=== PATIENT | male | born 1995 | race Caucasian/White ===

== ENCOUNTER 2017-01-27 13:29 | Emergency (ER) | payer BC ==
[~2017-01-27] VITALS: Ht 172.7 cm; Wt 73.7 kg
[2017-01-27 13:33] VITALS: TEMP 36.6; Ht 172.7 cm; Wt 73.7 kg
[2017-01-27] MEDS ORDERED: XYLOCAINE 1%/SOD BICARB 20 ML VIAL INFIL ONE (13:45)
[2017-01-27] MEDS ORDERED: SULF800T23 PO (13:51)
[2017-01-27] MEDS ORDERED: CEPH500C PO (13:51)
--- NOTE | 2017-01-27 14:44 | EMERGENCY ROOM VISIT NOTE ---
History First contact with patient: 13:41 Chief Complaint: WOUND INFECTION Stated Complaint: INFECTED WOUND Nursing Triage Summary: PT STATES WEARING SHOES THAT CAUSED A BLISTER ON POSTERIOR RIGHT HEEL. WOUND HAS INCREASED IN SIZE WITH ERYTHEMA, EDEMA AND PURULENT DRAINAGE NOTED. PT STATES UNABLE TO WEAR A SHOE ON THE FOOT AT THIS TIME. DENIES FEVER. History of Present Illness The patient is a 21 year old male who presents to the Emergency Room with complaints of an infection on the back of his right heel. The patient reports that he bought new shoes and had a small blister developed 3 weeks ago. It was very small at that time. It then seemed to get better until it redeveloped one week ago. He now reports redness and a white appearance over the past few days. He has not tried to open or drain the blister. He denies any history of antibiotic resistant infections. He rates his discomfort a 5 out of 10, mostly from pressure on the wound when walking. Review of Systems 10 system review was performed and was negative except for pertinent positives and negatives as indicated in history of present illness Past Medical/Surgical History Medical Problems: (1) No significant past medical history Surgical Problems: (1) No history of previous surgery Family History FH: cancer Social History Smoking Status: Never Smoker Alcohol Use: occasionally Marital Status: single Occupation Status: [employer] student Current/Historical Medications Scheduled Cephalexin Monohydrate (Keflex), 500 MG PO QID Sulfa/Trimethoprim (Bactrim Ds 800MG/160MG), 1 TAB PO BID Physical Exam Vital Signs Date Time Temp Pulse Resp B/P (MAP) Pulse Ox O2 Delivery O2 Flow Rate FiO2 01/27/17 13:33 36.6 81 20 143/97 97 Room Air Physical Exam CONSTITUTIONAL: Healthy and well nourished. Alert and oriented X 3 with positive affect. Patient does not appear in any acute distress. HEENT: Normocephalic, atraumatic. Pupils equal, round and reactive. NECK: Full active range of motion without discomfort. MUSCULOSKELETAL: Examination of the right posterior calcaneus shows what appears to be a pus filled blister. The overriding blister is intact. There is mild underlying erythema. There is no tenderness to palpation through the Achilles tendon. Capillary refill is less than 2 seconds, and pedal pulses are intact. INTEGUMENTARY: No rash or other significant dermatologic conditions noted. NEUROLOGIC: Right foot and toes are sensory intact. Medical Decision & Procedures Laboratory Results Abscess cultures were ordered. Procedure Patient provided verbal consent for aspiration versus I&D procedure under local anesthesia. The area is first painted with iodine and allowed to dry. Sterile field was created. Using buffered 1% lidocaine without epinephrine, good local anesthesia was administered. Using an 18-gauge needle, the blister was then aspirated for approximately 2 mL of purulent drainage. This completely flattened the blister without significant overriding tissue fluctuance. A pressure dressing was applied. ED Course Patient history and physical exam were performed. Nurse's notes were reviewed. Vital signs were reviewed and were normal. The patient's abscess was aspirated, and a pressure dressing was applied. The patient was advised that he may need some debridement in 2-3 days. He was instructed to follow-up with [facility] for reevaluation, and to review culture results. I also explained to the patient that we will call him with any cultures a resistance, or with any positive antibiotic resistant culture results such as MRSA. A postop shoe and crutches were also dispensed to avoid any pressure on the wound until it further heals. The patient was instructed to return to the emergency department for any worsening infection. He was encouraged to take ibuprofen or Tylenol as needed for pain. The patient was happy with plan of care, voiced understanding of all discharge instructions, and denied any worsening pain at the time of discharge. Medical Decision Medication Reconcilliation Current Medication List: was personally reviewed by me Blood Pressure Screening Patient's blood pressure: Normal blood pressure Impression Primary Impression: Foot abscess, right Departure Information Dispostion Home / Self-Care Prescriptions Sulfa/Trimethoprim (Bactrim Ds 800MG/160MG) Tab 1 TAB PO BID for 7 Days, #14 TAB Prov: Dillon Barriga PA 01/27/17 Cephalexin Monohydrate (Keflex) 500 Mg Cap 500 MG PO QID for 7 Days, #28 CAP Prov: Dillon Barriga PA 01/27/17 Forms HOME CARE DOCUMENTATION FORM, IMPORTANT VISIT INFORMATION Patient Instructions [facility] Additional Instructions Complete all Keflex and Bactrim DS antibiotics as prescribed. Keep wound covered with an antibiotic ointment and dressing. Use postop shoe and/or crutches until wound further heals. Ibuprofen 800 mg and/or Tylenol 1000 mg every 8 hours. You may also alternate these medications for more effective pain relief: Ibuprofen --4 HRS--> Tylenol --4 HRS--> ibuprofen --4 HRS--> Tylenol .... Suggest follow-up with [facility] in 2-3 days for recheck. Return to the emergency department for any worsening infection.
[2017-01-27 15:29] VITALS: BP 126/76; PULSE 71; O2SAT 97
--- NOTE | 2017-01-29 19:17 | Pharmacy Progress Note ---
ED Pharmacist Culture FollowUp Date of Service: Jan 29, 2017. Patient was sent home with a prescription for cephalexin and Bactrim, which should both cover the MSSA growing from the patient's abscess culture. Spoke adrian Barriga PA-C who would like to continue both antibiotics and no phone call follow-up needed.
== END 2017-01-27 15:41 | disposition home or self-care (01) ==
LOC: C.EDB 13:32 → C.EDD 15:41
DX: L02.611 Cutaneous abscess of right foot (principal)